=== PATIENT | male | born 1960 | race Caucasian/White ===

== ENCOUNTER 2019-09-14 06:21 | Day surgery (SDC) | payer BC, OTHER ==
[~2019-09-14 06:21] MED LIST: Lactated Ringers 1,000 ML IV SCH; Lidocaine 1%/Sod Bicarbonate in NS 8.4% 1 ML Syringe IDERM PRN; Sodium Chloride 0.9% 10 ML Syringe FLUSH PRN
[2019-09-14] MEDS ORDERED: Bupivacaine 0.25% 10 ML SDV ONE (06:35)
[2019-09-14] MEDS ORDERED: Lactated Ringers 1,000 ML ONE (06:43)
[2019-09-14] MEDS ORDERED: ceFAZolin 1 GM Vial ONE (06:43)
[2019-09-14] MEDS ORDERED: Ondansetron 4 MG/2 ML SDV ONE (06:43)
[2019-09-14] MEDS ORDERED: Lidocaine 1% 4 ML ONE (06:43)
[2019-09-14] MEDS ORDERED: Ketorolac 30 MG/ML SDV ONE (06:44)
[2019-09-14] MEDS ORDERED: Dexamethasone 4 MG/ML 5 ML MDV ONE (06:44)
[2019-09-14] MEDS ORDERED: Midazolam 1 MG/ML 2 ML SDV ONE (06:44)
[2019-09-14] MEDS ORDERED: fentaNYL 250 MCG/5 ML SDV ONE (06:44)
[2019-09-14] MEDS ORDERED: Propofol 200 MG/20 ML SDV ONE (06:44)
[2019-09-14] MEDS ORDERED: EPINEPHrine 1 MG/ML 30 ML MDV IRR SCH (07:15)
[2019-09-14] MEDS ORDERED: ePHEDrine Sulfate/0.9% NaCl/Pf 25 MG/5 ML SYRINGE IV ONE (07:20)
[2019-09-14] MEDS ORDERED: Ondansetron 4 MG/2 ML SDV IVPUSH PRN (07:43)
[2019-09-14] MEDS ORDERED: HYDROmorphone 0.5 MG/0.5 ML Syringe IVPUSH PRN (07:43)
[2019-09-14] MEDS ORDERED: fentaNYL 100 MCG/2 ML SDV IVPUSH PRN (07:43)
--- NOTE | 2019-09-14 07:46 | PCM.PREANE ---
Preanesthetic Assessment - Procedure Proposed Procedure: Left Knee Arthroscopy - Anesthesia/Transfusion/Family Hx Anesthesia History: Prior Anesthesia Without Reaction Family History of Anesthesia Reaction: No - Review of Systems General: No Symptoms Pulmonary: No Symptoms Cardiovascular: No Symptoms Gastrointestinal: No Symptoms Neurological: No Symptoms Other: Reports: None (Shingles, none open per patient, right side. Dr. Woo barajas ) - Physical Assessment NPO Status Date: 09/13/19 NPO Status Time: 22:00 Vital Signs: Last Vital Signs Temp 36.3 C 09/14/19 06:59 Pulse 59 L 09/14/19 06:59 Resp 14 09/14/19 06:59 BP 141/82 H 09/14/19 06:59 Pulse Ox 97 09/14/19 06:59 Height: 1.75 m Weight: 94.755 kg ASA Class: 2 Mental Status: Alert & Oriented x3 Airway Class: Mallampati = 1 Dentition: Reports: Normal Dentition, [place](s), Caries Thyro-Mental Finger Breadths: 3 Mouth Opening Finger Breadths: 3 ROM/Head Extension: Full Lungs: Clear to Auscultation, Normal Respiratory Effort Cardiovascular: Regular Rhythm, Bradycardia - Lab Values: Laboratory Last Values COVID-19 PCR Not detected (NOT DETECT) 09/11/19 09:00 - Allergies Allergies/Adverse Reactions: Allergies Allergy/AdvReac Type Severity Reaction Status Date / Time No Known Allergies Allergy Verified 09/14/19 06:56 - Anesthesia Plan Pre-Op Medication Ordered: Anxiolytic - Acknowledgements Anesthesia Type Planned: General Anesthesia (LMA) Pt an Appropriate Candidate for the Planned Anesthesia: Yes Alternatives and Risks of Anesthesia Discussed w Pt/Guardian: Yes Pt/Guardian Understands and Agrees with Anesthesia Plan: Yes PreAnesthesia Questionnaire - HOME MEDS Home Medications: Home Meds lisinopriL [Lisinopril] 10 mg PO DAILY 09/14/19 [History] - CURRENT (IN HOUSE) MEDS Current Meds: Current Medications Epinephrine HCl (Adrenalin) 3 mg IRR ONETIME DEE Stop: 09/14/19 11:00 Lactated Ringer's (Ringers, Lactated) 1,000 mls @ 125 mls/hr IV ASDIRECTED DEE Stop: 09/14/19 23:00 Last Admin: 09/14/19 06:58 Dose: 125 mls/hr Documented by: Lidocaine/Sodium Bicarbonate (Buffered Lidocaine 1% In Ns 8.4%) 0.25 ml IDERM ONETIME PRN PRN Reason: Prior to IV Start Stop: 09/14/19 23:00 Last Admin: 09/14/19 06:58 Dose: 0.25 ml Documented by: Sodium Chloride (Saline Flush) 10 ml FLUSH ASDIRECTED PRN PRN Reason: Keep Vein Open Stop: 09/14/19 23:00 Discontinued Medications Bupivacaine HCl (Sensorcaine-Mpf 0.25%) Confirm Administered Dose 20 ml .ROUTE .STK-MED ONE Stop: 09/14/19 06:36 Cefazolin Sodium (Ancef) Confirm Administered Dose 2 gm .ROUTE .STK-MED ONE Stop: 09/14/19 06:44 Dexamethasone (Dexamethasone) Confirm Administered Dose 20 mg .ROUTE .STK-MED ON E Stop: 09/14/19 06:45 Ephedrine Sulfate (Ephedrine 25 Mg/5 Ml Syringe) Confirm Administered Dose 25 mg IV .STK-MED ONE Stop: 09/14/19 07:21 Fentanyl (Sublimaze) Confirm Administered Dose 250 mcg .ROUTE .STK-MED ONE Stop: 09/14/19 06:45 Lidocaine HCl (Xylocaine-Mpf 1%) Confirm Administered Dose 4 mls @ as directed .ROUTE .STK-MED ONE Stop: 09/14/19 06:44 Lactated Ringer's (Ringers, Lactated) Confirm Administered Dose 1,000 mls @ as directed .ROUTE .STK-MED ONE Stop: 09/14/19 06:44 Ketorolac Tromethamine (Toradol) Confirm Administered Dose 30 mg .ROUTE .STK-MED ONE Stop: 09/14/19 06:45 Midazolam HCl (Versed 1 Mg/Ml) Confirm Administered Dose 2 mg .ROUTE .STK-MED ONE Stop: 09/14/19 06:45 Ondansetron HCl (Zofran) Confirm Administered Dose 4 mg .ROUTE .STK-MED ONE Stop: 09/14/19 06:44 Propofol (Diprivan 20 Ml) Confirm Administered Dose 400 mg .ROUTE .STK-MED ONE Stop: 09/14/19 06:45
--- NOTE | 2019-09-14 08:04 | PCM.POSTAN ---
POST ANESTHESIA ASSESSMENT - MENTAL STATUS Mental Status: Somnolent - VITAL SIGNS Vital Signs: Last Vital Signs Temp 36.3 C 09/14/19 06:59 Pulse 59 L 09/14/19 06:59 Resp 14 09/14/19 06:59 BP 141/82 H 09/14/19 06:59 Pulse Ox 97 09/14/19 06:59 0758 98/66 61 17 94% 97.4F - RESPIRATORY Respiratory Status: Respiratory Rate WNL, Airway Patent, O2 Saturation Stable, Supplemental Oxygen - CARDIOVASCULAR CV Status: Pulse Rate WNL, Blood Pressure Stable - GASTROINTESTINAL GI Status: No Symptoms - PAIN Pain Score: 0 - POST OP HYDRATION Hydration Status: Adequate & Stable
--- NOTE | 2019-09-14 09:00 | PCM48HPAN ---
Post Anesthesia Note - EVALUATION WITHIN 48HRS OF ANESTHETIC Vital Signs in Normal Range: Yes Patient Participated in Evaluation: Yes Respiratory Function Stable: Yes Airway Patent: Yes Cardiovascular Function Stable: Yes Hydration Status Stable: Yes Pain Control Satisfactory: Yes Nausea and Vomiting Control Satisfactory: Yes Mental Status Recovered: Yes Vital Signs: Last Vital Signs Temp 36.4 C 09/14/19 08:50 Pulse 55 L 09/14/19 08:50 Resp 13 09/14/19 08:50 BP 120/77 09/14/19 08:50 Pulse Ox 95 09/14/19 08:50
--- NOTE | 2019-09-20 16:21 | PCM.OPNOTE ---
- General Post-Op/Procedure Note Date of Surgery/Procedure: 09/14/19 Operative Procedure(s): left knee video arthroscopy with partial medial meniscecotmy and chondroplasty of medial femoral condyle Pre Op Diagnosis: left knee medial meniscus tear with osteoarthrosis Post-Op Diagnosis: Same Anesthesia Technique: General LMA, Local Primary Surgeon: Bobby Berkowitz Anesthesia Provider: Shonda Solano Oil Pipe Inspector: Marjorie Carty in mLs: 5 Complications: None Condition: Good
--- NOTE | 2019-09-20 16:57 | OR ---
DATE OF OPERATION: 09/14/2019 SURGEON: Bobby Berkowitz MD OPERATION PERFORMED: Left knee video arthroscopy with partial medial meniscectomy and chondroplasty of medial femoral condyle. PREOPERATIVE DIAGNOSIS: Left knee medial meniscus tear with osteoarthrosis. POSTOPERATIVE DIAGNOSIS: Left knee medial meniscus tear with osteoarthrosis. ANESTHESIA: General LMA with local. ANESTHESIA PROVIDER: Rosario Whaley. BUFFER INFLATED PAD: Marjorie Carty PA-C ESTIMATED BLOOD LOSS: Less than 5 mL. COMPLICATIONS: None. CONDITION: Stable. DESCRIPTION OF PROCEDURE: The patient was identified in the preoperative holding area. Proper site was marked and identified by the surgeon. The patient was taken back to the operating theater, where after adequate anesthesia, the patient's right lower extremity was placed in a well-leg mendenhall. Left lower extremity had a nonsterile tourniquet applied and was then placed in a C-clamp mendenhall. Foot of bed was then lowered. OR time-out was performed. Left lower extremity was then exsanguinated. Tourniquet was insufflated to 250 mmHg. Standard anterolateral portal incision was made. Scope trocar was introduced to the joint. The patient had grade 2 chondromalacia of the patella. There was a minor amount of synovitis. Attention was turned to the medial compartment. The patient was noted to have severe left knee medial compartment osteoarthritis with grade 4 chondromalacia and eburnated bone noted on the tibial plateau as well as grade 3/4 chondromalacia of the medial femoral condyle. He did have a degenerative tear of the meniscus. Partial medial meniscectomy was performed as well as chondroplasty of medial femoral condyle and medial tibial plateau back to a stable rim. ACL was intact in the notch. Lateral compartment showed grade 1/2 chondromalacia changes. Excess saline was drained from the knee. 3-0 nylon suture was used for closure of the skin. The patient was placed in a sterile soft dressing and sent to the PACU in stable condition. MMODAL /[id number]
== END 2019-09-14 09:25 | disposition home or self-care (01) ==
LOC: JD.SDS 06:21
PROVIDERS: ATTEND Orthopaedic Surgery
DX: S83.242A Other tear of medial meniscus, current injury, left knee, initial encounter (principal); M17.12 Unilateral primary osteoarthritis, left knee; M94.262 Chondromalacia, left knee; M65.862 Other synovitis and tenosynovitis, left lower leg; I10 Essential (primary) hypertension; Z79.899 Other long term (current) drug therapy; Z11.59 Encounter for screening for other viral diseases; X58.XXXA Exposure to other specified factors, initial encounter
CPT/HCPCS: 29881; 87635; J0171; J0690; J1100; J1885; J2001; J2250; J2704; J3010; J3490; J7120; 01400; J2405; U0002

== ENCOUNTER 2020-02-29 07:02 | Day surgery (SDC) | payer BC ==
[~2020-02-29 07:02] MED LIST changes: -Lactated Ringers 1,000 ML IV SCH
[2020-02-29] MEDS: Lactated Ringers 1,000 ML IV SCH ×2 (07:20→10:47)
[2020-02-29] MEDS ORDERED: oxyCODONE ER 10 MG TAB.ER PO ONE (07:21)
[2020-02-29] MEDS ORDERED: Acetaminophen 325 MG Tab PO ONE (07:21)
[2020-02-29] MEDS ORDERED: Pregabalin 25 MG Cap PO ONE (07:21)
--- NOTE | 2020-02-29 07:49 | PCM.PREANE ---
Preanesthetic Assessment - Procedure Proposed Procedure: left total knee arthroplasty - Anesthesia/Transfusion/Family Hx Anesthesia History: Prior Anesthesia Without Reaction Family History of Anesthesia Reaction: No Transfusion History: No Prior Transfusion(s) - Review of Systems General: No Symptoms Pulmonary: No Symptoms Cardiovascular: No Symptoms Gastrointestinal: No Symptoms Neurological: No Symptoms Other: Reports: None - Physical Assessment NPO Status Date: 02/28/20 NPO Status Time: 20:00 Vital Signs: 126/81 59 96% 16 97.5 Height: 5 ft 9 in Weight: 95 kg ASA Class: 2 Mental Status: Alert & Oriented x3 Airway Class: Mallampati = 1 Dentition: Reports: Normal Dentition Thyro-Mental Finger Breadths: 3 Mouth Opening Finger Breadths: 3 ROM/Head Extension: Full Lungs: Clear to Auscultation, Normal Respiratory Effort Cardiovascular: Regular Rate, Regular Rhythm - Lab Values: Laboratory Last Values MRSA (PCR) Negative 02/14/20 14:21 - Allergies Allergies/Adverse Reactions: Allergies Allergy/AdvReac Type Severity Reaction Status Date / Time No Known Allergies Allergy Verified 02/28/20 12:40 - Blood Blood Available: No - Acknowledgements Anesthesia Type Planned: Spinal Pt an Appropriate Candidate for the Planned Anesthesia: Yes Alternatives and Risks of Anesthesia Discussed w Pt/Guardian: Yes Pt/Guardian Understands and Agrees with Anesthesia Plan: Yes PreAnesthesia Questionnaire HEENT History: Reports: Allergic Rhinitis Cardiovascular History: Reports: Hypertension, Other (See Below) Other Cardiovascular History: PACs Respiratory History: Reports: None Gastrointestinal History: Reports: Other (See Below) Other Gastrointestinal History: elevated LFTs, inguinal hernia Genitourinary History: Reports: None DENTAL TECHNOLOGY ADVISOR History: Reports: None Musculoskeletal History: Reports: Other (See Below) Other Musculoskeletal History: bilateral meniscus tears, knee sprain Neurological History: Reports: None Psychiatric History: Reports: None Endocrine/Metabolic History: Reports: None Hematologic History: Reports: None Immunologic History: Reports: None Oncologic (Cancer) History: Reports: None Dermatologic History: Reports: None - Infectious Disease History Infectious Disease History: Reports: Novel Coronavirus - Past Surgical History Head Surgeries/Procedures: Reports: None HEENT Surgical History: Reports: None Cardiovascular Surgical History: Reports: None Respiratory Surgical History: Reports: None GI Surgical History: Reports: None Female Surgical History: Reports: None Male Surgical History: Reports: None Endocrine Surgical History: Reports: None Neurological Surgical History: Reports: None Musculoskeletal Surgical History: Reports: Arthroscopic Knee, Other (See Below) (achilles tendon right) Dermatological Surgical History: Reports: None - SUBSTANCE USE Tobacco Use Status *Q: Never Tobacco User Tobacco Use Within Last Twelve Months: No Second Hand Smoke Exposure: No Days Per Week of Alcohol Use: 2 Number of Drinks Per Day: 2 Total Drinks Per Week: 4 Recreational Drug Use History: No - HOME MEDS Home Medications: Home Meds lisinopriL [Lisinopril] 10 mg PO DAILY 09/14/19 [History] Ascorbic Acid [Vitamin C] 250 mg PO DAILY 02/28/20 [History] Cholecalciferol (Vitamin D3) [Vitamin D3] 5,000 unit PO DAILY 02/28/20 [History] Zinc Gluconate [Zinc] 10 mg PO DAILY 02/28/20 [History] Aspirin [Aspirin EC] 325 mg PO BID #84 tab 02/29/20 [Rx] Cyclobenzaprine [Flexeril] 10 mg PO BID PRN #20 tab 02/29/20 [Rx] oxyCODONE 5 - 10 mg PO Q4H PRN #40 tab 02/29/20 [Rx] - CURRENT (IN HOUSE) MEDS Current Meds: Current Medications Morphine Sulfate 8 mg/Epinephrine HCl 0.3 mg/Cefuroxime Sodium 750 mg/Ketorolac Tromethamine 30 mg/Sodium Chloride 7.9 ml 0 mg .XX ASDIRECTED PRN PRN Reason: Pain Lactated Ringer's (Ringers, Lactated) 1,000 mls @ 125 mls/hr IV ASDIRECTED DEE Stop: 02/29/20 23:00 Lidocaine/Sodium Bicarbonate (Buffered Lidocaine 1% In Ns 8.4%) 0.25 ml IDERM ONETIME PRN PRN Reason: Prior to IV Start Stop: 02/29/20 18:00 Sodium Chloride (Saline Flush) 10 ml FLUSH ASDIRECTED PRN PRN Reason: Keep Vein Open Stop: 02/29/20 18:00 Discontinued Medications Acetaminophen (Tylenol) 975 mg PO NOW ONE Stop: 02/29/20 07:22 Last Admin: 02/29/20 07:33 Dose: 975 mg Documented by: Oxycodone HCl (Oxycontin) 10 mg PO ONETIME ONE Stop: 02/29/20 07:22 Last Admin: 02/29/20 07:33 Dose: 10 mg Documented by: Pregabalin (Lyrica) 50 mg PO ONETIME ONE Stop: 02/29/20 07:22 Last Admin: 02/29/20 07:32 Dose: 50 mg Documented by:
[2020-02-29] MEDS ORDERED: fentaNYL 100 MCG/2 ML SDV ONE (08:06)
[2020-02-29] MEDS ORDERED: Propofol 200 MG/20 ML SDV ONE (08:06)
[2020-02-29] MEDS ORDERED: Midazolam 1 MG/ML 2 ML SDV ONE (08:06)
[2020-02-29] MEDS ORDERED: Lidocaine 1% 4 ML ONE (08:47)
[2020-02-29] MEDS ORDERED: ceFAZolin 1 GM Vial ONE (08:48)
[2020-02-29] MEDS ORDERED: Lactated Ringers 1,000 ML ONE (09:00)
[2020-02-29] MEDS ORDERED: Dexmedetomidine 200 MCG/2 ML SDV ONE (09:16)
[2020-02-29] MEDS: Bupivacaine 0.25% 10 ML SDV ONE ×2 (09:23→09:52)
[2020-02-29] MEDS: Morphine 8 MG, EPINEPHrine 0.3 MG, Cefuroxime 750 MG, Ketorolac 30 MG, Sodium Chloride ... PRN ×10 (09:24→09:54)
[2020-02-29] MEDS: Vancomycin 1 GM SDV ONE ×2 (09:24→09:53)
[2020-02-29] MEDS ORDERED: Dexamethasone 4 MG/ML 5 ML MDV ONE (09:41)
--- NOTE | 2020-02-29 09:54 | PCM.PRNOTE ---
- Free Text/Narrative Note: Postoperative regional pain control requested by surgeon. Pre-op Dx: Left knee osteoarthritis. Post-op Rx: Total Left knee arthroplasty. Procedure: Left Adductor canal block with U/S guidance Requesting physician: Dr. Bobby Winslow Risks and benefits discussed with the patient preoperatively including infectio n, bleeding, incomplete or failed block, possible nerve damage, local anesthetic toxicity. Permit signed. Patient after spinal anesthesia post surgery in PACU, stable , alert and awake. Time out performed. Left mid-thigh was prepped with Chloraprep x 1 and allowed to dry. Under aseptic technique, the femoral artery and sartorius muscle were identified under ultrasound prior to needle insertion. 4" Stimuplex needle #22 G was inserted under US guidance. Under direct visualization of needle tip the injection of 0.5% Ropivacaine with 1:200k epinephrine with 8 mg of Dexamethasone and 40 mcg of Dexmedetomidine, total of 30 mls in divided doses, maintaining negative aspiration was completed without problems. No local anesthetic toxicity was noted. Patient is awake, stable and tolerated the procedure well. Time: 9421-7312 Please see attached U/S pictures.
[2020-02-29] MEDS ORDERED: Ropivacaine 0.5% 5 MG/ML 30 ML SDV ONE (10:26)
--- NOTE | 2020-02-29 10:52 | PCM.POSTAN ---
POST ANESTHESIA ASSESSMENT - MENTAL STATUS Mental Status: Alert, Oriented - VITAL SIGNS Vital Signs: Last Vital Signs Temp 97.7 F 02/29/20 10:45 Pulse 53 L 02/29/20 10:45 Resp 16 02/29/20 10:45 BP 96/46 L 02/29/20 10:45 Pulse Ox 95 02/29/20 10:45 - RESPIRATORY Respiratory Status: Respiratory Rate WNL, Airway Patent, O2 Saturation Stable - CARDIOVASCULAR CV Status: Pulse Rate WNL, Blood Pressure Stable - GASTROINTESTINAL GI Status: No Symptoms - PAIN Pain Score: 3 (ACB is going to be administered) - POST OP HYDRATION Hydration Status: Adequate & Stable
[2020-02-29] MEDS ORDERED: oxyCODONE 5 MG Tab PO PRN (10:57)
[2020-02-29] MEDS ORDERED: Cyclobenzaprine 10 MG Tab PO ONE (10:57)
--- NOTE | 2020-02-29 13:37 | PCM48HPAN ---
Post Anesthesia Note - EVALUATION WITHIN 48HRS OF ANESTHETIC Vital Signs in Normal Range: Yes Patient Participated in Evaluation: Yes Respiratory Function Stable: Yes Airway Patent: Yes Cardiovascular Function Stable: Yes Hydration Status Stable: Yes Pain Control Satisfactory: Yes Nausea and Vomiting Control Satisfactory: Yes Mental Status Recovered: Yes Vital Signs: Last Vital Signs Temp 97.7 F 02/29/20 11:15 Pulse 49 L 02/29/20 12:20 Resp 16 02/29/20 12:20 BP 96/62 02/29/20 12:20 Pulse Ox 97 02/29/20 12:20 - COMMENTS/OBSERVATIONS Free Text/Narrative:: ambulated, worked with physical therapy, preparing to be discharged home
--- NOTE | 2020-03-01 11:14 | CR ---
Left knee: AP and crosstable lateral views of the left knee were obtained. Comparison: No prior knee exam is available. Knee prosthesis is seen. Components are aligned. Underlying bony structures are intact. Soft tissue air is noted from the surgical procedure. Impression: 1. Satisfactory postop radiographic appearance of recently placed left knee prosthesis. Diagnostic code #2 I agree with preliminary report from [facility], finalized on 02/29/20, 12:42 PM SENIOR POWER PLANT OPERATOR
--- NOTE | 2020-03-18 11:24 | PCM.OPNOTE ---
- General Post-Op/Procedure Note Date of Surgery/Procedure: 02/29/20 Operative Procedure(s): left total knee arthroplasty Pre Op Diagnosis: left knee osteoarthrosis Post-Op Diagnosis: Same Anesthesia Technique: Local, MAC, Spinal Primary Surgeon: Bobby Berkowitz Anesthesia Provider: Lobito Goodman Felt Hat Pouncing Operator Hand: Marjorie Carty Felt Hat Pouncing Operator Hand: Otilia Rolle EBL in mLs: 200 Complications: None Condition: Good Free Text/Narrative:: 06/26 35x10 11mm poly
--- NOTE | 2020-03-18 11:47 | OR ---
DATE OF OPERATION: 02/29/2020 SURGEON: Bobby Berkowitz MD OPERATION PERFORMED: Left total knee arthroplasty. PREOPERATIVE DIAGNOSIS: Left knee osteoarthrosis. POSTOPERATIVE DIAGNOSIS: Left knee osteoarthrosis. ANESTHESIA: Local MAC with spinal. ANESTHESIA PROVIDER: Riana Mi. ASSISTANTS: Marjorie Carty PA-C and Otilia Rolle LPN ESTIMATED BLOOD LOSS: 200 mL. COMPLICATIONS: None. CONDITION: Stable. IMPLANTS: 1. Bruce size 5 press-fit CR femur. 2. Bruce size 5 press-fit tibial base plate. 3. Bruce size 5, 11 mm CS polyethylene insert. 4. [place] size 35 x 10 mm press fit asymmetric patella. DESCRIPTION OF PROCEDURE: The patient was identified in the preop holding area. Proper site was marked and identified by the surgeon. The patient was taken back to the operating theater. After adequate anesthesia, the patient's left lower extremity had a nonsterile tourniquet applied and it was sterilely prepped and draped in the usual sterile fashion. OR time-out was performed. The patient received 2 g IV Ancef. At this time, the left lower extremity was exsanguinated. Tourniquet was insufflated to 300 mmHg. Standard medial parapatellar incision was made. Medial parapatellar arthrotomy was created. Deep fibers of the MCL were raised and anterior fat pad was resected. At this time, attention was turned to the patella. Patella measured 26, it was resected to a 15 for a 35 x 10 mm patella. Drill holes were then drilled and found to be in adequate position. The drill was then drilled in the distal femur and the intramedullary distal femoral cutting guide was then placed. 8 mm was resected off the distal femur and was found to be an adequate resection. Sizing guide was placed. It was found to be a size 5 press-fit CR femur that was shown on the implant record at the beginning of this dictation. The drill holes were drilled for the epicondylar axis using Whitesides line and epicondyles as reference. At this time, the 4-in- 1 cutting block was placed. An anterior posterior and anterior and posterior chamfer cuts were then completed. Attention was turned to the tibia. The posterior medial lateral retractors were placed. The extramedullary tibial guide was placed. It was placed in the old footprint of the ACL. It was aligned with the center of the ankle and 0 degrees of slope, 9 mm was then resected off the unaffected side. There was found to be an acceptable reduction. At this time, posterior osteophytes were removed along with medial and lateral meniscus. A trial implant was placed with a correct sized tibia that was mentioned at the beginning of the dictation. A [place] size 5, 11 mm CS polyethylene insert was then placed. The patient's knee was brought through range of motion. The patella was tracking centrally and was stable to varus and valgus stress. Alignment was found to be roughly at 0 degrees. The tibia was stamped and drilled in proper rotation. The universal tibial base plate was impacted in place. Next, the [place] size 5 press-fit CR femur impacted into place and the Bruce size 5, 11 mm CS polyethylene insert was placed. The patient's knee was brought into full extension. The patella was then press-fit in place at this time. Tourniquet was deflated. One liter Irrisept solution was irrigated through the knee along with 1 L of pulse lavage irrigation with Ancef. Periarticular injection was then completed. The patient's knee was brought through a range of motion. Knee was found to be stable to varus valgus stress, the patella was tracking centrally with full range of motion. At this time, a #2 barbed suture was used for closure of the medial parapatellar arthrotomy. Topical tranexamic acid was placed. 2-0 Vicryl was used subcutaneously, Prineo was used for the skin. The patient tolerated the procedure well and was sent to the PACU in stable condition. MMSHANTEL /[id number] MARY
== END 2020-02-29 14:35 | disposition home or self-care (01) ==
LOC: JD.SDS 07:02
PROVIDERS: ATTEND Orthopaedic Surgery
DX: M17.12 Unilateral primary osteoarthritis, left knee (principal); I10 Essential (primary) hypertension; Z79.899 Other long term (current) drug therapy
CPT/HCPCS: 27447; 73560; 87641; 97116; 97161; A9270; C1776; J0171; J0690; J0697; J1100; J1885; J2001; J2250; J2270; J2704; J2795; J3010; J3370; J3490; J7120; 01402; 64450